=== PATIENT | female | born 1980 | race Caucasian/White ===

== ENCOUNTER 2016-12-11 00:52 | Emergency (ER) | payer OTHER ==
[~2016-12-11] VITALS: Ht 167.6 cm; Wt 79.8 kg
[2016-12-11 01:29] LABS: HEMATOCRIT 38.2 % (36.0-46.0); MCHC 33.8 G/DL (30.0-36.0); MCV 94.8 FL (83-99); MEAN PLAT.VOLUME 10.7 uM^3 (9.5-12.4); PLATELET COUNT 236 K/uL (156-360); RBC DIS.WIDTH-CV 11.5 % (11.8-14.6); RBC DIS.WIDTH-SD 40.4 % (39-53); RED BLOOD COUNT 4.03 M/uL (3.80-5.20); WHITE BLOOD COUNT 9.6 K/uL (4.1-10.2)
[2016-12-11 01:39] LABS: PROTHROMBIN TIME 10.7 SEC (10.2-12.9)
[2016-12-11 01:41] LABS: PTT 28.1 SEC (25-37)
[2016-12-11 01:42] LABS: CHLORIDE 104 mEq/L (99-109); POTASSIUM 3.8 mEq/L (3.7-5.4); SODIUM 141 mEq/L (136-147)
[2016-12-11 01:44] LABS: GLUCOSE 111 mg/dL (70-99)
[2016-12-11 01:45] LABS: ANION GAP 11 MEQ/L (2-14)
[2016-12-11 01:48] LABS: GFR ESTIMATE (CALCULATED) > 59 mL/min/
[2016-12-11 01:49] LABS: UREA NITROGEN (BUN) 14 mg/dL (9-23)
[2016-12-11 01:50] LABS: TROP-I INTERPRETATION NEGATIVE; TROPONIN-I < 0.01 ng/mL (0.0-0.30)
[2016-12-11 02:34] VITALS: BP 127/87
== END 2016-12-11 02:35 | disposition home or self-care (01) ==
LOC: EME → EDBD 00:52 → EME 00:52
PROVIDERS: Emergency Medicine
DX: R07.9 Chest pain, unspecified (principal); F41.9 Anxiety disorder, unspecified
CPT/HCPCS: 71020; 80048; 84484; 85027; 85610; 85730; 93005; 99281; 99284